=== PATIENT | female | born 1975 | race Caucasian/White ===

== ENCOUNTER 2017-02-22 19:32 | Emergency (ER) | payer BC ==
[2017-02-22 20:01] VITALS: BP 108/75; PULSE 89; RESP 20; TEMP 97.2; O2SAT 98
== END 2017-02-22 20:30 | disposition home or self-care (01) ==
LOC: ED 19:32
DX: S93.421A Sprain of deltoid ligament of right ankle, initial encounter (principal); X50.9XXA Other and unspecified overexertion or strenuous movements or postures, initial encounter
CPT/HCPCS: 73610; 99282; 99283; L4350